=== PATIENT | female | born 1960 | race Caucasian/White ===

== ENCOUNTER → 2021-05-12 | Outpatient (CLI) | payer BC ==
--- NOTE | 2021-05-13 11:48 | RAD ---
EXAM: XR RT WRIST 3VIEWS, XR HAND_RIGHT 3 VIEWS 05/12/2021 4:37 PM CLINICAL INDICATION: Injury COMPARISON: None TECHNIQUE: 3 views of the right wrist and 3 views of the right hand. FINDINGS: Right wrist: No acute fracture. Alignment is normal. Joint spaces are maintained. No soft tissue abno rmality. Right hand: No acute fracture. Alignment is normal. Joint spaces are maintained. No soft tissue abnor mality. IMPRESSION: No acute osseous abnormality of the right hand or wrist. Electronically signed by: Imelda Santiago MD (05/13/2021 11:46 AM) [id number]
== END ==
LOC: DXRAD 16:19
PROVIDERS: ATTEND Specialist
DX: M79.641 Pain in right hand (principal)
CPT/HCPCS: 73110; 73130